=== PATIENT | female | born 1940 | race Two or more races ===

== ENCOUNTER 2022-04-29 14:06 | Emergency (ER) | payer OTHER ==
[~2022-04-29] VITALS: Ht 165.1 cm; Wt 63.5 kg
[2022-04-29] MEDS ORDERED: ZESTRIL5 MG PO (14:14)
[2022-04-29] MEDS ORDERED: PLAVIX75 MG PO (14:15)
[2022-04-29] MEDS ORDERED: NORVASC5 MG PO (14:15)
== END 2022-04-29 16:09 | disposition home or self-care (01) ==
LOC: ER 14:06
DX: S01.92XA Laceration with foreign body of unspecified part of head, initial encounter (principal); W18.30XA Fall on same level, unspecified, initial encounter; Y93.9 Activity, unspecified; Y92.019 Unspecified place in single-family (private) house as the place of occurrence of the external cause; G20 Parkinson's disease

== ENCOUNTER → 2022-05-13 | Emergency (ER) | payer OTHER ==
[~2022-05-13] VITALS: Ht 165.1 cm; Wt 63.5 kg
[~2022-05-13] MED LIST: AMLODIPINE-OLM1 EAC2; NORVASC5 MG PO; PLAVIX75 MG PO; ZESTRIL5 MG PO
== END | disposition home or self-care (01) ==
LOC: ER 10:39
DX: Z48.02 Encounter for removal of sutures (principal)